=== PATIENT | female | born 1980 | race Caucasian/White ===

== ENCOUNTER 2018-11-10 15:53 | Emergency (ER) | payer MEDICAID ==
[~2018-11-10] VITALS: Ht 157.5 cm; Wt 74.3 kg
[2018-11-10 16:07] VITALS: Ht 157.5 cm; Wt 74.3 kg
[2018-11-10] MEDS ORDERED: SOD CHLORIDE 0.9% 500 ML IV STA (18:10)
[2018-11-10] MEDS ORDERED: METOCLOPRAMIDE 10 MG INJ IM STA (18:10)
[2018-11-10] MEDS ORDERED: KETOROLAC 30 MG INJ IV STA (18:10)
[2018-11-10 20:00] VITALS: BP 123/75; PULSE 79; RESP 18
[2018-11-10] MEDS ORDERED: NITR-58 PO (20:34)
--- NOTE | 2018-11-10 20:46 | ERD ---
ER Documentation Chief Complaint Chief Complaint x 15 days of NORIEGA, talia ear pain, "ovary" pain and "I feel like crying alot." HPI 38-year-old female with a history of ovarian cyst presenting with multiple complaints including intermittent mild frontal headaches with pressure in the ears. She also complains of bilateral, "ovary" pain from her cysts. The pain is intermittent, aching, nonradiating. Her pain was worse today which is why she checked into the ER. No fevers or chills. She does complain of mild dysuria. All of her symptoms have been going on for over 2 weeks. It is unclear why she did not seek care before today. ROS All systems reviewed and are negative except as per history of present illness. Medications Home Meds Active Scripts Nitrofurantoin Monohyd Macrocr* (Macrobid*) 100 Mg Capsr, 100 MG PO BID for 5 Days, CAP Prov:KARMEN BRUCE MD 11/10/18 Allergies Allergies: Coded Allergies: No Known Allergy (Unverified , 11/10/18) PMhx/Soc History of Surgery: Yes (Api, C-sectionX1) Anesthesia Reaction: No Hx Neurological Disorder: No Hx Respiratory Disorders: No Hx Cardiac Disorders: No Hx Psychiatric Problems: No Hx Miscellaneous Medical Probl: No Hx Alcohol Use: No Hx Substance Use: No Hx Tobacco Use: No Smoking Status: Never smoker FmHx Family History: No diabetes Physical Exam Vitals Vital Signs Date Temp Pulse Resp B/P (MAP) Pulse Ox O2 O2 Flow FiO2 Time Delivery Rate 11/10/18 97.8 79 18 123/75 99 Room Air 20:00 (91) 11/10/18 119 22 118/85 99 Room Air 17:50 (96) 11/10/18 99.3 138 22 125/84 96 16:07 (98) Physical Exam Const: No acute distress Head: Atraumatic Eyes: Normal Conjunctiva ENT: Normal External Ears, Nose and Mouth. Neck: Full range of motion. No meningismus. Resp: Clear to auscultation bilaterally Cardio: Regular rate and rhythm, no murmurs Abd: Soft, minimal pubic tenderness, non distended. Normal bowel sounds Skin: No petechiae or rashes Back: No midline or flank tenderness Ext: No cyanosis, or edema Neur: Awake and alert Psych: Normal Mood and Affect Results 24 hrs Laboratory Tests Test 11/10/18 18:30 11/10/18 18:32 Urine Color STRAW Urine Clarity CLEAR Urine pH 6.0 Urine Specific [place] 1.004 Urine Ketones NEGATIVE mg/dL Urine Nitrite NEGATIVE mg/dL Urine Bilirubin NEGATIVE mg/dL Urine Urobilinogen NEGATIVE mg/dL Urine Leukocyte Esterase 1+ Tha/ul Urine Microscopic RBC 3 /HPF Urine Microscopic WBC 5 /HPF Urine Squamous Epithelial Cells FEW /HPF Urine Bacteria FEW /HPF Urine Hemoglobin NEGATIVE mg/dL Urine Glucose NEGATIVE mg/dL Urine Total Protein NEGATIVE mg/dl POC Beta HCG, Qualitative NEGATIVE Current Medications Medications Dose Sig/Jamel Start Time Status Last (Trade) Ordered Route PRN Stop Time Admin Dose Reason Admin Sodium 500 ml @ Q1H STAT 11/10/18 DC 11/10/18 Chloride 500 mls/hr IV 18:10 18:33 11/10/18 19:09 10 mg ONCE STAT 11/10/18 DC 11/10/18 Metoclopramid IM 18:10 18:34 e HCl 11/10/18 18:12 (Reglan) Ketorolac 30 mg ONCE STAT 11/10/18 DC 11/10/18 Tromethamine IV 18:10 18:36 (Toradol) 11/10/18 18:12 Procedures/MDM EMERGENT LABS AND DIAGNOSTIC STUDIES: Lab Results above were reviewed and interpreted by me. negative UA: 1+ leukocyte esterase, possibly indicative of infection. Radiology Results as interpreted by Radiology below were reviewed by Madeleine Bruce MD: Pelvic ultrasound: IMPRESSION: 1. Left ovarian 3.0 cm cyst. 2. Bilateral ovaries perfuse normally. 3. Age appropriate appearance of the uterus. 4. No free fluid identified Initial Nursing notes reviewed. Previous Medical Records requested via the Electronic Health Record. EMERGENCY DEPARTMENT COURSE / MEDICAL DECISION MAKING: Differential includes but is not limited to appendicitis, colitis, cystitis, ureterolithiasis, diverticulitis, abdominal aortic dissection, bowel obstruction, fecal impaction, ectopic , ovarian torsion, tubo-ovarian abscess, PID. Pelvic ultrasound did show an uncomplicated ovarian cyst without evidence of torsion or free fluid. No evidence of tubo-ovarian abscess. I have a very low suspicion for ovarian torsion or acute surgical abdomen. Urinalysis did show possible evidence of UTI. Urine culture is pending. She will be treated with Macrobid outpatient. Return precautions discussed. 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 The patient was counseled about the risks of hypertension and urged to pursue outpatient monitoring and therapy within a week with their primary care physician. Departure Diagnosis: Primary Impression: UTI (urinary tract infection) Urinary tract infection type: acute cystitis Hematuria presence: without hematuria Qualified Codes: N30.00 - Acute cystitis without hematuria Additional Impression: Ovarian cyst Laterality: left Qualified Codes: N83.202 - Unspecified ovarian cyst, left side Condition: Stable Patient Instructions: Understanding Urinary Tract Infections (UTIs), Ovarian Cyst KARMEN BRUCE MD Nov 10, 2018 20:46
== END 2018-11-10 20:40 | disposition home or self-care (01) ==
LOC: E/R 15:53
DX: N30.00 Acute cystitis without hematuria (principal); N83.202 Unspecified ovarian cyst, left side; R10.2 Pelvic and perineal pain
CPT/HCPCS: 36415; 76856; 81001; 81025; 87086; 96361; 96372; 96374; J1885; J2765; J7040; Z7502; Z7610